=== PATIENT | female | born 1935 | race Caucasian/White ===

== ENCOUNTER 2024-04-01 01:52 | Emergency (ER) | payer MEDICARE ==
[~2024-04-01] VITALS: Ht 165.1 cm; Wt 64.0 kg
[2024-04-01 01:56] VITALS: BP 184/82; TEMP 98.1; O2SAT 99
[2024-04-01] MEDS ORDERED: ACETAMINOPHEN 325MG TABLET PO ONE (03:15)
[2024-04-01] MEDS ORDERED: ACET-2708 MT (04:53)
[2024-04-01 05:20] VITALS: PULSE 71; RESP 18
== END 2024-04-01 05:20 | disposition home or self-care (01) ==
LOC: ER 01:52
DX: S62.92XA Unspecified fracture of left hand, initial encounter for closed fracture (principal); S70.02XA Contusion of left hip, initial encounter; S80.12XA Contusion of left lower leg, initial encounter; S09.90XA Unspecified injury of head, initial encounter; I10 Essential (primary) hypertension; I49.9 Cardiac arrhythmia, unspecified; W18.39XA Other fall on same level, initial encounter; Y93.89 Activity, other specified; Y92.89 Other specified places as the place of occurrence of the external cause; Y99.8 Other external cause status
CPT/HCPCS: 70486; 72192; 73130; 73562; 73590; 99284